=== PATIENT | female | born 1940 | race Caucasian/White ===

== ENCOUNTER → 2016-05-25 | Outpatient (CLI) | payer MEDICARE, OTHER ==
[2015-06-18 14:42] VITALS: BP 160/90
--- NOTE | 2016-05-25 15:40 | RAD ---
Indication pain. No history of injury. AP oblique and lateral views of the left knee were obtained. There is medial joint space compartment narrowing. There is slight sclerosis of the medial tibial plateau. Bony mineralization appears normal. No fracture is seen. Significant joint fluid is not seen. IMPRESSION: Mild degenerative change involving the knee.
== END | disposition home or self-care (01) ==
LOC: DXRADRC 13:45
PROVIDERS: ATTEND Nurse Practitioner Family
DX: M25.562 Pain in left knee (principal); M17.12 Unilateral primary osteoarthritis, left knee
CPT/HCPCS: 73562

== ENCOUNTER → 2018-06-12 | Outpatient (CLI) | payer MEDICARE, OTHER ==
[2015-06-18 14:42] VITALS: BP 160/90
--- NOTE | 2018-06-12 14:36 | RAD ---
Examination: 3 views of the bilateral knees HISTORY: History of bilateral knee pain COMPARISON: Left knee from 05/25/2016 FINDINGS: Right total knee arthroplasty changes. Severe joint space loss identified in the medial compartment of the left knee. There is mild to moderate joint space loss identified in the lateral, patellar femoral compartments of the left knee. IMPRESSION: 1. Right knee arthroplasty changes. 2. 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 Electronically signed by: Kevan Nam MD (06/12/2018 2:34 PM) [id number]
== END | disposition home or self-care (01) ==
LOC: PMG 13:51
PROVIDERS: ATTEND Registered Nurse
DX: M17.12 Unilateral primary osteoarthritis, left knee (principal); Z96.651 Presence of right artificial knee joint
CPT/HCPCS: 73562